=== PATIENT | female | born 1995 | race African-American/Black ===

== ENCOUNTER 2021-09-13 22:09 | Emergency (ER) | payer BC ==
[2021-09-13] MEDS ORDERED: predniSONE 20 MG Tab PO ONE (22:45)
[2021-09-13] MEDS ORDERED: diphenhydrAMINE 25 MG Cap PO ONE (22:45)
== END 2021-09-13 22:55 | disposition home or self-care (01) ==
LOC: LL.ED 22:09
DX: R21 Rash and other nonspecific skin eruption (principal); T49.95XA Adverse effect of unspecified topical agent, initial encounter
CPT/HCPCS: 99282; 99283; A9270-GY; J7512